=== PATIENT | female | born 1980 | race Caucasian/White ===

== ENCOUNTER 2021-06-01 13:43 | Outpatient (CLI) | payer OTHER, SELFPAY ==
--- NOTE | ~2021-06-01 | XR_ITS ---
EXAMINATION: XR hip RT min 2V DATE: 06/01/2021 14:03 INDICATION: Right hip pain TECHNIQUE: Anteroposterior , frog leg and cross-table lateral views of the right hip were obtained. COMPARISON: None. FINDINGS: Alignment is normal. No fracture. Right hip osteoarthritis with mild nonuniform joint space narrowing and marginal osteophytes about the femoral head and acetabulum. Lucencies projecting over the femora l head and acetabulum could represent degenerative subchondral cystic change or less likely osteonecr osis. Soft tissues are unremarkable. IMPRESSION: 1. Mild right hip osteoarthritis. 2. Lucencies projecting over the femoral head and acetabulum which could represent osteoarthritis rel ated subchondral cystic changes although differential includes less likely avascular necrosis of the right femoral head. Reviewed, dictated and finalized at location A. ABORATING SUPERVISING PHYSICIAN IMPRESSION: 1. Mild right hip osteoarthritis. 2. Lucencies projecting over the femoral head and acetabulum which could repres ent osteoarthritis related subchondral cystic changes although differential inc ludes less likely avascular necrosis of the right femoral head.
== END 2021-06-01 13:44 | disposition home or self-care (01) ==
LOC: ANHIMG 13:48
PROVIDERS: PCP Internal Medicine; Visit Provider Nurse Practitioner
DX: M16.11 Unilateral primary osteoarthritis, right hip (principal)
CPT/HCPCS: 73502

== ENCOUNTER → 2021-06-04 08:33 | Outpatient (CLI) | payer OTHER, SELFPAY ==
[2021-06-04 12:06] LABS: Influenza A QL RT-PCR Negative (Negative); Influenza B QL RT-PCR Negative (Negative); SARS-CoV-2 RNA PCR Negative
== END ==
PROVIDERS: PCP Internal Medicine; Visit Provider Nurse Practitioner
DX: Z20.822 Contact with and (suspected) exposure to COVID-19 (principal)
CPT/HCPCS: 87502; C9803; U0003; U0005

== ENCOUNTER 2022-08-04 10:44 | Outpatient (CLI) | payer OTHER, SELFPAY ==
--- NOTE | ~2022-08-04 | XR_ITS ---
XR chest 2V DATE: 08/04/2022 10:57 INDICATION: Shortness of breath. Tobacco smoker. TECHNIQUE: PA and lateral views COMPARISON: None FINDINGS: Normal heart size. No hilar or mediastinal enlargement. No pulmonary infiltrate or consolid ation, pleural effusion or pulmonary vascular congestion or pneumothorax is detected. Mild thoracolumbar dextroscoliosis. IMPRESSION: No active cardiopulmonary disease Reviewed, dictated and finalized at location L.
== END 2022-08-04 10:45 | disposition home or self-care (01) ==
LOC: ANHIMG 10:46
PROVIDERS: PCP Nurse Practitioner; Visit Provider Nurse Practitioner
DX: R06.02 Shortness of breath (principal)
CPT/HCPCS: 71046

== ENCOUNTER 2022-11-30 13:32 | Outpatient (CLI) | payer OTHER, SELFPAY ==
--- NOTE | ~2022-11-30 | CT_ITS ---
EXAMINATION: CT sinus wo con DATE: 11/30/2022 13:59 INDICATION: Chronic sinusitis TECHNIQUE: Computed tomography (CT) of the paranasal sinuses was performed without intravenous contra st. The dose-length product (DLP) was 312.04 mGy-cm. Iterative reconstruction was used. COMPARISON: None FINDINGS: There is normal development of the paranasal sinuses. Near complete opacification of the ri ght frontal sinus. Opacification of the right anterior and middle ethmoid air cells as well as the ri ght maxillary sinus. Right maxillary sinus expansile soft tissue opacification, extending through a w idened right OMU. Sclerotic maxillary sinus wynne. Left inferior maxillary retention cysts versus frances yps. The remaining aerated spaces are clear. The left ostiomeatal unit is patent. Visualized soft tis sues are unremarkable. Periapical lucencies in the maxillary arch. Dental caries. Mild rightward bowi ng of the inferior osseous septum with a small osseous spur. IMPRESSION: Right OMU pattern of paranasal sinus obstruction. Chronic right maxillary sinusitis. Obstructing and expansile polyp in the right maxillary sinus. Multiple left maxillary sinus retention cysts/polyps. Dental caries and periodontal disease. Reviewed, dictated and finalized at location K.
== END 2022-11-30 13:33 | disposition home or self-care (01) ==
PROVIDERS: PCP Nurse Practitioner; Visit Provider Otolaryngology
DX: J32.0 Chronic maxillary sinusitis (principal); J33.8 Other polyp of sinus; K02.9 Dental caries, unspecified; K05.6 Periodontal disease, unspecified
CPT/HCPCS: 70486

== ENCOUNTER 2023-01-25 12:25 | Outpatient (CLI) | payer OTHER, SELFPAY ==
--- NOTE | 2023-01-25 12:46 | ECG_ITS ---
Measurements Intervals [place] Rate: 53 P: -1 SD: 176 QRS: -10 QRSD: 85 T: -26 QT: 437 QTc: 410 Interpretive Statements SINUS BRADYCARDIA WITH SINUS ARRHYTHMIA INFERIOR T-WAVE ABNORMALITY, CONSIDER ISCHEMIA. ABNORMAL ECG NO PREVIOUS ECG AVAILABLE FOR COMPARISON Electronically Signed On 01-25-2023 15:44:46 CDT by Oli Galan M.D.
== END 2023-01-25 12:26 | disposition home or self-care (01) ==
LOC: ANHSURGERY 12:32
PROVIDERS: PCP Nurse Practitioner; Visit Provider Otolaryngology
DX: Z01.818 Encounter for other preprocedural examination (principal); R94.31 Abnormal electrocardiogram [ECG] [EKG]; F17.210 Nicotine dependence, cigarettes, uncomplicated
CPT/HCPCS: 93005

== ENCOUNTER 2023-01-31 01:24 | Day surgery (SDC) | payer OTHER, SELFPAY ==
[2023-01-23 13:24] VITALS: BMI 36.6
--- NOTE | 2023-01-23 13:33 | PC.NURSE ---
Report to the Outpatient Waiting Room, entrance under the green pavilion located off [facility], at time _0800_ on date _[id number]_. Planned Procedure Time: _1000_. Time changes happen often and if your time is changed the preop area will call you the afternoon before. - You and your visitor will be asked to self-screen and do not enter if you have any COVID symptoms. - A mask is optional within the hospital at this time. Patients may have clear liquids (water, carbonated beverages, clear teas, apple juice) until 3 hours prior to surgery with a maximum of 20 ounces. - No food from midnight until time of surgery Take the following medications with a SIP of water the morning of surgery: ____Flonase and Albuterol as needed. DO NOT STOP ANY OF YOUR OTHER PRESCRIPTION MEDICATIONS PRIOR TO SURGERY ?EXCEPT THE FOLLOWING Medications to discontinue per physician None Date to take last dose Please no make-up, nail vincentian, hairspray, perfume, deodorant, or body powder the day of surgery. No jewelry (including any body piercings) or valuables the day of surgery, leave them at home. Please take a shower or bath the night before, or the morning of, surgery with an antibacterial soap. Wear comfortable, loose fitting clothing. - Jewelry must be removed prior to entering the operating room. Rings and piercings that are not removed may be cut off. - The hospital will not accept responsibility for valuables. - Please leave all valuables, including medications, at home the day of surgery. If you are going home after surgery, a licensed dairy truck driver must drive you home. - NO public transportation without another adult if you receive anesthesia. - We recommend that an adult stay with you for 24 hours following discharge. - We also recommend that you do not drive, make important decision, drink alcoholic beverages, or take any drugs that were not prescribed by your health care provider for at least 24 hours after your discharge time. Follow any additional instructions given to you from your surgeon. If you or anyone in your household have experienced Covid symptoms in the past week, please notify your surgeon or the nurse liaison at the phone number below for possible testing. Telephone instructions given to __Patient___and asked if any additional questions and then verbalized understanding. Patient advised to call surgeon office or pre surgery nurse liaison [phone] if any additional questions.
--- NOTE | 2023-01-30 17:16 | PM.IMHP ---
H&P: HPI History of Present Illness Date/Time: 01/30/23 17:16 Chief Complaint: Chronic sinusitis septal deviation turbinate hypertrophy nasal obstruct Narrative: planned procedure Review of Systems Review of Systems: All systems reviewed & are unremarkable except as noted in HPI and below PMFSH Past Medical History Medical History Anxiety Depression Hip pain Surgical History Surgical History Delivery by section Family History Family History Mother Hypercholesteremia Hypertension Lung cancer Asthma Father Hypercholesteremia Hypertension COPD (chronic obstructive pulmonary disease) Sibling Anxiety and depression Grandparent Heart disease Social History Social History (Updated 01/25/23 @ 07:29 by Laura Saldana MA) Smoking packs per day: 1 Smoking cigarettes per day: 20.0 Years smoked: 22 Smoking pack-years: 22.00 Smoking status: Current every day smoker Tobacco type: cigarettes Second hand tobacco smoke exposure: Yes Alcohol intake: never Substance use: current Substance use type: marijuana Other substance usage details: daily Last use: daily Lack of Transportation: No Lack of Food: Never True Current Housing: Decline to Answer Concerned About Future Housing: Decline to Answer Difficulty Paying Gas/Electric Bills: Decline to Answer Difficulty Paying for Meds: No Currently Unemployed: No Education: High School Diploma/GED Difficulty w/ Childcare or Family Care: No Living arrangements: with family Occupation/Education: occupation 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[employer] Gender identity (if verbalized by the patient): Female Sexual Orientation (if Verbalized by the Patient): Straight or Heterosexual Spiritual care concerns: No Meds Home Medications and Allergies Home Medications Medication Instructions Recorded Confirmed Type albuterol sulfate 90 mcg/actuation 2 inh inhalation Q4H PRN shortness 08/04/22 01/25/23 Rx aerosol inhaler of breath or wheezing #8.5 grams fluticasone propionate 50 1 - 2 spray intranasal BID #16 mL 11/23/22 01/25/23 Rx mcg/actuation nasal spray,suspension (Flonase Allergy Relief) amlodipine 5 mg tablet 5 mg PO DAILY #30 tabs 01/25/23 01/25/23 Rx metoprolol succinate 50 mg 50 mg PO DAILY #90 tabs 01/25/23 Rx tablet,extended release 24 hr doxycycline hyclate 100 mg capsule 100 mg PO Q24H #14 caps 01/26/23 01/26/23 Rx prednisone 5 mg tablet 5 mg PO .daily #10 tabs 01/26/23 01/26/23 Rx Allergies Allergy/AdvReac Type Severity Reaction Status Date / Time amoxicillin AdvReac Intermediate yeast Verified 01/25/23 07:22 infection Exam Narrative: chronic appearing sinuses septal deviation turbinate hypertrophy Assessment and Plan Assessment and plan (1) Hypertrophy of both inferior nasal turbinates: Code(s): J34.3 - Hypertrophy of nasal turbinates Status: Acute Assessment and Plan: plan 0 are septoplasty turbinate reduction with outfracture bilaterally right-sided image guided endoscopic maxillary antrostomy anterior ethmoidectomy frontal sinusotomy likely with tissue removal on the max. Risks were discussed including bleeding infection damage to surrounding structures CSF leak brain brain damage change in vision total blindness need for further procedures failure to resolve symptoms septal perforation damage to any structure of the clavicle by myself need for time off work time off school damage to any structure during the induction and maintenance of anesthesia including vocal cord paralysis. Patient voiced understanding and agreed. (2) Nasal septal deviation: Code(s): J34.2 - Deviated nasal septum Status: Acute (3) Scale Technician
[2023-01-31] VITALS (9 sets, daily range): BP systolic 119–159; BP diastolic 68–99; PULSE 40–68; RESP 12–16; TEMP 36.7–36.8; O2SAT 92–100
--- NOTE | 2023-01-31 07:18 | WPDHPUPDATE1 ---
History and Physical Update Update Date/Time: 01/31/23 07:18 History and Physical has been reviewed, including an updated exam of the patient. There are NO changes in the patient's condition. Risks, benefits, and alternatives have been discussed and questions answered. Patient agrees to proceed with procedure.
[2023-01-31] MEDS: LACTATED RINGERS 1,000 ML 30 ML IV CONT ×2 (08:45→13:51)
[2023-01-31] MEDS: SCOPOLAMINE 1.5 MG PATCH TRANSDERM (09:00)
[2023-01-31] MEDS: ACETAMINOPHEN 500 MG TABLET 1000 MG PO (09:00)
--- NOTE | 2023-01-31 09:18 | WPDANESEPPF ---
Anes - Initial Pre Proc Eval Procedure: Operation Date: 01/31/23 10:00 Proposed Procedures p Image Guided Right Frontal Sinusotomy, Right Anterior Ethmoidectomy, Right Maxillary Antrostomy with Tissue Removal, Bilateral Inferior Turbinectomy with Outfracture, - Shayan Akers MD s Endoscopic Septoplasty - Shayan Akers MD Date/Time: 01/31/23 09:18 Surgeon: Shayan Akers MD Pre Op Diagnosis: chronic sinusitis Patient Data Age: 42 Gender: F Height: 1.57 m Weight: 90.9 kg Allergies Allergy/AdvReac Type Severity Reaction Status Date / Time amoxicillin AdvReac Intermediate yeast Verified 01/31/23 09:18 infection Home Medications Medication Instructions Recorded Confirmed Type albuterol sulfate 90 mcg/actuation 2 inh inhalation Q4H PRN shortness 08/04/22 01/25/23 Rx aerosol inhaler of breath or wheezing #8.5 grams fluticasone propionate 50 1 - 2 spray intranasal BID #16 mL 11/23/22 01/25/23 Rx mcg/actuation nasal spray,suspension (Flonase Allergy Relief) amlodipine 5 mg tablet 5 mg PO DAILY #30 tabs 01/25/23 01/25/23 Rx metoprolol succinate 50 mg 50 mg PO DAILY #90 tabs 01/25/23 Rx tablet,extended release 24 hr doxycycline hyclate 100 mg capsule 100 mg PO Q24H #14 caps 01/26/23 01/26/23 Rx prednisone 5 mg tablet 5 mg PO .daily #10 tabs 01/26/23 01/26/23 Rx Patient hx anesthesia problems: none Family hx anesthesia problems: none Results Review: All pre-operative results and documents have been reviewed as part of the pre-operative evaluation. [facility] Past Medical History Medical History Anxiety Depression Hip pain Surgical History Surgical History Delivery by section Family History Family History Mother Hypercholesteremia Hypertension Lung cancer Asthma Father Hypercholesteremia Hypertension COPD (chronic obstructive pulmonary disease) Sibling Anxiety and depression Grandparent Heart disease Social History Social History Smoking packs per day: 1 Smoking cigarettes per day: 20.0 Years smoked: 22 Smoking pack-years: 22.00 Smoking status: Current every day smoker Tobacco type: cigarettes Second hand tobacco smoke exposure: Yes Alcohol intake: never Substance use: current Substance use type: marijuana Other substance usage details: daily Last use: daily Lack of Transportation: No Lack of Food: Never True Current Housing: Decline to Answer Concerned About Future Housing: Decline to Answer Difficulty Paying Gas/Electric Bills: Decline to Answer Difficulty Paying for Meds: No Currently Unemployed: No Education: High School Diploma/GED Difficulty w/ Childcare or Family Care: No Living arrangements: with family Occupation/Education: occupation 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 verbalized by the patient): Female Sexual Orientation (if Verbalized by the Patient): Straight or Heterosexual Spiritual care concerns: No Anes - Eval Final PreProcedure Day of Procedure 01/31/23 09:18 Patient weight: obese Heart: regular rate and rhythm Lungs: clear to auscultation Airway: Mallampati scale class II Neurological: alert and oriented Last oral intake: >/= 8 hours ASA classification: III Emergent: no Anesthetic plan: proceed Anesthesia type and monitoring: general ETT and standard monitoring Results Review: All pre-operative results and documents have been reviewed as part of the pre-operative evaluation. Informed Consent: The patient's anesthetic plan and its attendant risks and benefits were discussed with the patient/family/POA. Questions were solicited and answers provided to the satisfaction of the patient/family/POA.
[2023-01-31] MEDS: ceFAZolin 2 GM/D5W 50 ML 2 GM/50 ML BAG IVPB (11:05)
[2023-01-31] MEDS: LIDO 1%/EPINEPHRINE 1:100,000 20 ML VIAL 5 ML INFILTRATE (11:53)
[2023-01-31] MEDS: MUPIROCIN 2% OINT 22 GM TUBE 1 APPLIC EACH NARE ×2 (11:55→13:36)
--- NOTE | 2023-01-31 14:06 | P.OP_ITS ---
Procedure Note - Detailed Date of Procedure 01/31/23 Pre-op Diagnosis chronic sinusitis, septal deviation, turbinate hypertrophy, nasal obstruction Post-op Diagnosis Same Procedure Performed Right-sided middle turbinectomy, bilateral inferior turbinate reduction outfracture, endoscopic assisted septoplasty, right-sided image guided maxillary antrostomy, image guided endoscopic right-sided total ethmoidectomy, endoscopic image guided right-sided frontal sinusotomy Surgeon Shayan Akers MD Anesthesia General Indications See above Findings Copious amounts of purulence all the aforementioned sinuses right septal deviation high large turbinates, right posterior ethmoid cell had to be opened it is it also had purulence in it. Middle turbinate was essentially appeared to be nonviable bone was removed for access into the frontal as well. Description of Procedure Patient identified consent verified preop. Patient brought to the operating room. Time-out performed. General anesthesia induced endotracheal tube secured. Patient prepped draped positioned procedure confirmed 2nd time-out performed. Image guidance initiating confirmed. Afrin-soaked pledgets placed in bilateral nasal passages removed 5 minutes later. 0 degree endoscope utilized [place] incision made left side after the injection of 15 cc local the bilateral nasal septum right middle turbinate and bilateral inferior turbinates. [place] incision made with 15 blade left nasal septum. Left nasal septal flap elevated 7 Tamazight suction. Osteotome utilized crossed over the septum right nasal septal flap elevated. No perforations. Deviated septum removed Yuniel Martinez forceps Gale forceps and osteotome. Turbinates reduced submucosal with microdebrider 2.5 blade then outfractured. Copious amounts of purulence and edematous tissue emanating from the right max these were debrided maxillary antrostomy performed with the ball-tip probe backbiter microdebrider and straight through cut anterior ethmoidectomy performed with Kerrison sorry total ethmoidectomy Kerrison straight through cut microdebrider purulence within the posterior ethmoid as well on the right side. Sphenoid os appeared clear. Right middle turbinate was then taken stump cauterized with Bovie suction electrocautery setting of 15 as it appeared nonviable was obstructing the frontal. Frontal sinusotomy performed with frontal instruments all the surgery was under image guided including francisca and Guicho. Propel stent was then placed the wound was copiously irrigated sternal saline Kimball splints a Jorge incision was closed with interrupted 5 0 fast gut sutures. Kimball splints placed bilaterally sutured anteriorly using a 3-0 mattress nylon suture. Blood loss at least 100 cc. No complications. No injury to orbit nasal lacrimal ducts no septal perforation skull base was intact. Care the patient given back to Anesthesiology. I performed all dictated portions procedure. The purulent wounds were copiously irrigated with sterile normal saline until no purulence was noted. No pack placed right-sided nova. Right edematous tissue in the middle meatus was sent for pathologic analysis as well. Estimated Blood Loss -100.0 Drains No Packing Yes Pathology Yes Complications No immediate complications Condition Stable Disposition PACU [facility] Billing Surgery - Charge Forward: Surgery Billing
[2023-01-31] MEDS: fentaNYL CITRATE INJ (*CRX) 100 MCG/2 ML VIAL 25 MCG IV PUSH ×4 (14:09→14:34)
[2023-01-31] MEDS: ONDANSETRON INJ 4 MG/2 ML VIAL IV PUSH (14:09)
[2023-01-31] MEDS: oxyCODONE HCL (*CRX) 5 MG TAB IR PO (16:07)
--- NOTE | 2023-01-31 16:38 | SUR.PHASEII ---
Dr. Akers instructed pt to take Doxycyline to BID. Pt states understanding. D/C paperwork edited.
== END 2023-01-31 16:35 | disposition home or self-care (01) ==
PROVIDERS: PCP Nurse Practitioner; Visit Provider Otolaryngology
PROC: (CPT 31256; principal; 2023-01-31 10:00)
PROC: (CPT 30520; 2023-01-31 10:00)
DX: J32.9 Chronic sinusitis, unspecified (principal); J34.3 Hypertrophy of nasal turbinates; J34.2 Deviated nasal septum; F17.210 Nicotine dependence, cigarettes, uncomplicated; F12.90 Cannabis use, unspecified, uncomplicated; Z79.51 Long term (current) use of inhaled steroids; E66.9 Obesity, unspecified; Z68.37 Body mass index [BMI] 37.0-37.9, adult
CPT/HCPCS: 31256; 31253; 30520; 30140; 61782; 88305; 88311; A9270; C2625; J0330; J0690; J1100; J2250; J2405; J2704; J3010; J7030; J7120

== ENCOUNTER 2023-08-15 09:04 | Emergency (ER) | payer SELFPAY ==
--- NOTE | 2023-08-15 09:11 | ED.URI ---
HPI - URI/Sore Throat General Chief Complaint: Upper Respiratory Infection Stated Complaint: SOB/Sore Throat Time Seen by Provider: 08/15/23 09:25 Source: patient and RN notes reviewed Mode of arrival: ambulatory Limitations: no limitations History of Present Illness HPI Narrative: 43-year-old female presents concern for 5 day history of cough, wheezing, sore throat, sinus congestion, general malaise. She reports she started taking amoxicillin that her sister had left over on Monday, she has been taking it twice daily with no relief. She has also been taking ibuprofen and DayQuil. MD elicited complaint: cough and sore throat Related Data Allergies Allergy/AdvReac Type Severity Reaction Status Date / Time amoxicillin AdvReac Intermediate yeast Verified 08/15/23 09:26 infection Review of Systems Review of Systems: CONSTITUTIONAL: Reports malaise. Denies chills, sweats, or fever. EYES: Denies visual changes, redness, or discharge. ENT: Reports rhinorrhea, congestion, and sore throat. CARDIOVASCULAR: Denies chest pain, palpitations, or edema. RESPIRATORY: Reports cough. Denies dyspnea. GASTROINTESTINAL: Denies abdominal pain, nausea, vomiting, diarrhea SKIN: Denies rash or itching. MUSCULOSKELETAL: Denies myalgia. NEUROLOGIC: Reports headache. All systems reviewed & are unremarkable except as noted in HPI and below PMFSH Past Medical History Medical History Anxiety Depression Hip pain Surgical History Surgical History Delivery by section Family History Family History Mother Hypercholesteremia Hypertension Lung cancer Asthma Father Hypercholesteremia Hypertension COPD (chronic obstructive pulmonary disease) Sibling Anxiety and depression Grandparent Heart disease Social History Social History Smoking packs per day: 1 Smoking cigarettes per day: 20.0 Years smoked: 22 Smoking pack-years: 22.00 Smoking status: Current every day smoker Tobacco type: cigarettes Second hand tobacco smoke exposure: Yes Alcohol intake: never Substance use: current Substance use type: marijuana Other substance usage details: daily Last use: daily Lack of Transportation: No Lack of Food: Never True Current Housing: Decline to Answer Concerned About Future Housing: Decline to Answer Difficulty Paying Gas/Electric Bills: Decline to Answer Difficulty Paying for Meds: No Currently Unemployed: No Education: High School Diploma/GED Difficulty w/ Childcare or Family Care: No Living arrangements: with family Occupation/Education: occupation 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 There is no relevant family history pertinent to the presenting complaint Exam Narrative: GENERAL: Nontoxic-appearing, well-nourished, and in no acute distress. HEAD: Normocephalic EYES: PERRLA, conjunctivae clear ENT: Nares clear, turbinates edematous and erythematous, clear discharge. Mucous membranes moist. TM pearly desir with sharp light reflex bilaterally; no tragal tenderness. Oropharynx not erythematous without lesions. Tonsils not enlarged and without exudate, no drooling, no hoarseness, no trismus, uvula midline. NECK: Supple. No lymphadenopathy CHEST: Clear to auscultation, breath sounds equal. No wheezing, rhonchi, rales, or stridor. No respiratory distress, speaks in full sentences. HEART: Regular rate and rhythm. No murmur heard. SKIN: Warm, dry, no rash.
[2023-08-15 09:12] VITALS: BP 142/89; PULSE 75; RESP 16; TEMP 37.7; O2SAT 99
== END 2023-08-15 09:40 | disposition home or self-care (01) ==
PROVIDERS: Emergency Provider Nurse Practitioner; PCP Nurse Practitioner
DX: J06.9 Acute upper respiratory infection, unspecified (principal); F17.210 Nicotine dependence, cigarettes, uncomplicated; F12.90 Cannabis use, unspecified, uncomplicated
CPT/HCPCS: 99213; G0463